=== PATIENT | male | born 1965 | race Caucasian/White ===

== ENCOUNTER → 2024-10-19 10:58 | Outpatient (REF) | payer MEDICARE, SELFPAY | LOC: EMG 10:58 | PROVIDERS: ATTENDING PHYSICIAN Psychiatry & Neurology Neurology; FAMILY PHYSICIAN Family Medicine | DX: M54.12 Radiculopathy, cervical region (principal); R20.0 Anesthesia of skin; R20.2 Paresthesia of skin; G56.03 Carpal tunnel syndrome, bilateral upper limbs | CPT/HCPCS: 95886; 95911 ==

== ENCOUNTER → 2025-02-15 15:13 | Outpatient (REF) | payer MEDICARE, OTHER, SELFPAY | LOC: RCS 15:13 | PROVIDERS: ATTENDING PHYSICIAN Student in an Organized Health Care Education/Training Program; FAMILY PHYSICIAN Family Medicine | DX: R07.89 Other chest pain (principal); R06.02 Shortness of breath; I50.32 Chronic diastolic (congestive) heart failure | CPT/HCPCS: 93307; Q9957 ==